=== PATIENT | female | born 1955 | race Caucasian/White ===

== ENCOUNTER 2018-11-02 10:36 | Day surgery (SDC) | payer BC ==
[~2018-11-02] VITALS: Ht 172.7 cm; Wt 64.0 kg
[~2018-11-02 10:36] MED LIST: BACITRACIN 50,000 UNIT ONE; BUPIVACAINE/PF 0.5% ONE; FENTANYL PF 100 MCG/2ML ONE; MIDAZOLAM 1 MG/ML, 2ML ONE
[2018-11-02 10:55] VITALS: BP 119/83
[2018-11-02] MEDS ORDERED: LEVO88TA2 PO (11:07)
[2018-11-02] MEDS ORDERED: MULT-658 PO (11:07)
[2018-11-02] MEDS ORDERED: LISI5TAB7 PO (11:07)
[2018-11-02] MEDS ORDERED: LACT1CAP35 PO (11:07)
[2018-11-02] MEDS ORDERED: CALC-545 PO (11:07)
[2018-11-02] MEDS ORDERED: CHOL100011 PO (11:07)
[2018-11-02] MEDS ORDERED: OMEG-170 PO (11:07)
[2018-11-02] MEDS ORDERED: FENTANYL PF 100 MCG/2ML ONE (11:40)
[2018-11-02] MEDS ORDERED: MIDAZOLAM 1 MG/ML, 2ML ONE (11:41)
[2018-11-02 11:43] LABS: ALBUMIN 4.1 g/dL (3.4-5.0); ANION GAP 7 mmol/L (5-15); CALCIUM 8.8 mg/dL (8.5-10.1); CHLORIDE 104 mmol/L (98-107); CREATININE 0.63 mg/dL (0.55-1.02)
[2018-11-02 11:49] LABS: ALANINE AMINOTRANSFERASE 27 U/L (12-78); ALKALINE PHOSPHATASE 44 U/L (45-117); BILIRUBIN,TOTAL 0.8 mg/dL (0.2-1.0); TOTAL PROTEIN 7.5 g/dL (6.4-8.2)
[2018-11-02] MEDS ORDERED: BUPIVACAINE/PF 0.5% ONE (12:23)
[2018-11-02] MEDS ORDERED: DEXAMETHASONE 4 MG/ML, 1ML ONE (12:23)
[2018-11-02] MEDS ORDERED: CEFAZOLIN 1,000 MG ONE (12:23)
[2018-11-02] MEDS ORDERED: ONDANSETRON 2MG/ML, 2ML ONE (12:23)
[2018-11-02] MEDS ORDERED: PROPOFOL 10 MG/ML, 20ML ONE (12:23)
[2018-11-02] MEDS ORDERED: KETOROLAC 30 MG/1 ML IV PRN (12:30)
[2018-11-02] MEDS ORDERED: MEPERIDINE/PF 25MG/0.5ML IVPush PRN (12:30)
[2018-11-02] MEDS ORDERED: ONDANSETRON 2MG/ML, 2ML IV PRN (12:30)
[2018-11-02] MEDS ORDERED: MIDAZOLAM 1 MG/ML, 2ML IV PRN (12:30)
[2018-11-02] MEDS ORDERED: OXYcodone 5 MG/5 ML ORAL.SOL UDC PO PRN (12:30)
[2018-11-02] MEDS ORDERED: PROMETHAZINE 25 MG/ML, 1ML IV PRN (12:30)
[2018-11-02] MEDS ORDERED: ACETAMINOPHEN 325 MG TABLET PO PRN (12:30)
[2018-11-02] MEDS ORDERED: FENTANYL PF 100 MCG/2ML IV PRN (12:30)
[2018-11-02] MEDS ORDERED: EPHEDRINE 50 MG/ML, 1ML ONE (15:24)
== END 2018-11-02 15:15 | disposition home or self-care (01) ==
LOC: OUT 10:36
PROVIDERS: ATTEND Orthopaedic Surgery
DX: T84.84XA Pain due to internal orthopedic prosthetic devices, implants and grafts, initial encounter (principal); Y83.8 Other surgical procedures as the cause of abnormal reaction of the patient, or of later complication, without mention of misadventure at the time of the procedure; Y92.89 Other specified places as the place of occurrence of the external cause; Z72.89 Other problems related to lifestyle; I10 Essential (primary) hypertension; E03.9 Hypothyroidism, unspecified
CPT/HCPCS: 25447; 36415; 64415; 73120; 76000; 80053; 93005; C1713; C1762; J0690; J1100; J2250; J2405; J2704; J3010; J3490